=== PATIENT | male | born 1965 | race Caucasian/White ===

== ENCOUNTER → 2018-08-17 11:24 | Outpatient (CLI) | payer BC, SELFPAY ==
[2018-08-17 13:47] LABS: Alanine Aminotransferase 75 U/L (12-78); Albumin Level 4.4 gm/dL (3.4-5.0); Albumin/Globulin Ratio 1.3 (1.1-1.8); Alkaline Phosphatase 51 U/L (46-116); Aspartate Amino Transferase 47 U/L (15-37); Bilirubin,Total 0.5 mg/dL (0.2-1.0); Blood Urea Nitrogen 16 mg/dL (7-18); Calcium 10.2 mg/dL (8.5-10.1); Carbon Dioxide 31 mmol/L (21.0-32.0); Chloride 101 mmol/L (98-107); Chol/HDL Ratio 4.9 (1-3.5); Cholesterol 102 mg/dL (140-200); Creatinine,Serum 1.32 mg/dL (0.70-1.30); Estimated Glomerular Filt Rate 56 ml/min (>60); GFR (African American) 68 ML/MIN (>60); Globulin 3.4 gm/dl (1.3-3.2); Glucose 119 mg/dL (74-106); HDL Cholesterol 21 mg/dL (27-67); LDL Cholesterol 41 mg/dL (0-130); Sodium 140 mmol/L (136-145); Thyroid Stimulating Hormone 2.55 uIU/ml (0.358-3.740); Total Protein,Serum 7.8 gm/dL (6.4-8.2); Triglycerides 201 mg/dL (30-200); VLDL Cholesterol 40 mg/dL (0-40)
[2018-08-19 15:32] LABS: Microalbumin, Urine 38.4 ug/mL (Not Estab.)
== END ==
PROVIDERS: PCP Nurse Practitioner Family; Visit Provider Nurse Practitioner Family
DX: E11.9 Type 2 diabetes mellitus without complications (principal)
CPT/HCPCS: 36415; 80053; 80061; 82043; 84443

== ENCOUNTER 2019-02-16 14:00 | Outpatient (RCR) | payer BC, SELFPAY | END 2019-03-02 11:21 | disposition home or self-care (01) | LOC: PT.CARL 14:00 | PROVIDERS: Visit Provider Orthopaedic Surgery | DX: Z96.652 Presence of left artificial knee joint (principal) | CPT/HCPCS: 97010; 97014; 97110; 97112; 97116; 97140; 97163; G0283 ==